=== PATIENT | female | born 1970 | race Caucasian/White ===

== ENCOUNTER 2018-12-25 11:48 | Emergency (ER) | payer OTHER ==
[~2018-12-25] VITALS: Ht 152.4 cm; Wt 53.1 kg
[2018-12-25 12:14] VITALS: BP 99/54
--- NOTE | 2018-12-25 12:24 | NUR ---
PATIENT AMBULATED TO BED 10.
--- NOTE | 2018-12-25 12:27 | NUR ---
48/F BIB FAMILY C/O LUMP OF RIGHT NECK & PAIN RADIATING TO RIGHT EAR X 4 MONTHS. DENIES TRAUMA/INJURY. MED HX: ANEMIA, TUBAL LIGATION. PATIENT STATES PAIN OF 7/10 AT THIS TIME;PATIENT POSITIONED FOR COMFORT; HOB ELEVATED; BEDRAILS UP X1; BED DOWN. ER MD MADE AWARE OF PT STATUS.
[2018-12-25] MEDS ORDERED: NACL 0.9% 1,000 ML IV ONE (13:05)
[2018-12-25 13:32] LABS: BASOPHILS # (AUTO) 0.1 K/uL (0.00-0.22); BASOPHILS % (AUTO) 0.8 % (0.0-2.0); EOSINOPHILS # (AUTO) 0.2 K/uL (0-0.4); EOSINOPHILS % (AUTO) 2.3 % (0.0-4.0); HEMATOCRIT 31.9 % (36-48); HEMOGLOBIN 10.8 g/dL (12.0-16.0); LYMPHOCYTES # (AUTO) 0.8 K/uL (2.5-16.5); LYMPHOCYTES % (AUTO) 11.3 % (20.5-51.1); MEAN CORPUSCULAR HEMOGLOBIN 31 pg (27-31); MEAN CORPUSCULAR HGB CONC 34 g/dL (33-37); MEAN CORPUSCULAR VOLUME 90.8 fL (80-94); MONOCYTES # (AUTO) 0.5 K/uL (0.8-1.0); NEUTROPHILS # (AUTO) 5.9 K/uL (1.8-7.7); NEUTROPHILS % (AUTO) 78.6 % (42.2-75.2); PLATELET COUNT (AUTO) 202 K/uL (140-450); RED BLOOD CELL COUNT(AUTO) 3.51 MIL/uL (4.20-5.40); RED CELL DISTRIBUTION WIDTH 14.4 % (11.6-13.7); WHITE BLOOD COUNT (AUTO) 7.5 K/uL (4.8-10.8)
[2018-12-25 14:20] LABS: ALBUMIN 3.3 g/dL (3.4-5.0); ANION GAP 7.2 (8-16); CARBON DIOXIDE 29.2 mmol/L (21-32); CREATININE 0.6 mg/dL (0.6-1.3); POTASSIUM 4.4 mmol/L (3.5-5.1); TOTAL BILIRUBIN 0.2 mg/dL (0.0-1.0)
[2018-12-25] MEDS ORDERED: AMOXICILLIN 500 MG CAP PO ONE (16:50)
[2018-12-25 17:04] VITALS: BP 107/65
== END 2018-12-25 17:04 | disposition home or self-care (01) ==
LOC: MED 11:48
DX: J02.9 Acute pharyngitis, unspecified (principal); R22.9 Localized swelling, mass and lump, unspecified; D64.9 Anemia, unspecified; Z85.43 Personal history of malignant neoplasm of ovary
CPT/HCPCS: 36415; 70491; 80053; 84702; 85025; 85651; 86140; 99284; J7030; Q9967

== ENCOUNTER 2019-04-05 11:36 | Emergency (ER) | payer OTHER ==
[~2019-04-05] VITALS: Ht 152.4 cm; Wt 49.0 kg
[2019-04-05 11:42] VITALS: BP 95/62
--- NOTE | 2019-04-05 11:49 | NUR ---
AMB TO BED 02, URINE CUP PROVIDED
--- NOTE | 2019-04-05 11:50 | NUR ---
Patient ambulated to bed 2. RN evaluating patient at bedside.
--- NOTE | 2019-04-05 11:52 | NUR ---
Dr. Mondragon is evaluating the patient at bedside.
--- NOTE | 2019-04-05 11:57 | NUR ---
PATIENT PRESENTS TO ED WITH C/O EPISTAXIS SINCE LAST NIGHT. DENIES ANY PICKING/TRAUMA TO NOSE. PER PT, BLEEDING SPONTANEOUSLY STOPPED. PT STATES ACCOMPANYING PRESSURE-LIKE HEADACHE. DENIES N/V/D; SKIN IS PINK/WARM/DRY; AAOX4 WITH EVEN AND STEADY GAIT; LUNGS CLEAR BL; HR EVEN AND REGULAR; PT DENIES ANY FEVER, CP, SOB, OR COUGH AT THIS TIME; VSS; PATIENT POSITIONED FOR COMFORT; HOB ELEVATED; BEDRAILS UP X2; BED DOWN. ER MD MADE AWARE OF PT STATUS. PMH: OROPHARYNGEAL CA MEDS: NORCO PRN NKA
[2019-04-05 12:21] LABS: BASOPHILS % (AUTO) 0.2 % (0.0-2.0); EOSINOPHILS # (AUTO) 0.1 K/uL (0-0.4); EOSINOPHILS % (AUTO) 1.6 % (0.0-4.0); HEMATOCRIT 34.2 % (36-48); HEMOGLOBIN 11.3 g/dL (12.0-16.0); LYMPHOCYTES # (AUTO) 0.9 K/uL (2.5-16.5); LYMPHOCYTES % (AUTO) 15.4 % (20.5-51.1); MEAN CORPUSCULAR HEMOGLOBIN 29 pg (27-31); MEAN CORPUSCULAR HGB CONC 33 g/dL (33-37); MEAN CORPUSCULAR VOLUME 87.4 fL (80-94); MONOCYTES # (AUTO) 0.4 K/uL (0.8-1.0); MONOCYTES % (AUTO) 6.6 % (1.7-9.3); NEUTROPHILS # (AUTO) 4.6 K/uL (1.8-7.7); NEUTROPHILS % (AUTO) 76.2 % (42.2-75.2); PLATELET COUNT (AUTO) 288 K/uL (140-450); RED BLOOD CELL COUNT(AUTO) 3.92 MIL/uL (4.20-5.40); RED CELL DISTRIBUTION WIDTH 13.4 % (11.6-13.7)
[2019-04-05 12:34] LABS: PROTHROMBIN TIME 9.6 secs (10.8-13.4)
[2019-04-05] MEDS ORDERED: NACL 0.9% 1,000 ML IV ONE (12:35)
[2019-04-05 12:37] LABS: CARBON DIOXIDE 30.3 mmol/L (21-32); CREATININE 0.8 mg/dL (0.6-1.3); POTASSIUM 4.3 mmol/L (3.5-5.1)
[2019-04-05 12:48] LABS: ALBUMIN 3.3 g/dL (3.4-5.0); TOTAL BILIRUBIN 0.3 mg/dL (0.0-1.0)
[2019-04-05 15:35] VITALS: BP 95/62
--- NOTE | 2019-04-05 15:36 | NUR ---
Patient discharged with v/s stable. Written and verbal after care instructions given and explained. Patient verbalized understanding. Ambulatory with steady gait. All questions addressed prior to discharge. Advised to follow up with PMD.
--- NOTE | 2019-04-07 08:52 | NUR ---
Late entry. COnfirmed with RN that 0.9 NS IV completed at 1425
== END 2019-04-05 15:36 | disposition home or self-care (01) ==
LOC: MED 11:36
DX: R04.0 Epistaxis (principal); R51 Headache; R20.0 Anesthesia of skin; Z85.9 Personal history of malignant neoplasm, unspecified
CPT/HCPCS: 36415; 70486; 80053; 85025; 85610; 85730; 99284; J7030

== ENCOUNTER 2019-07-04 20:12 | Emergency (ER) | payer OTHER ==
[~2019-07-04] VITALS: Ht 152.4 cm; Wt 48.5 kg
[2019-07-04 20:16] VITALS: BP 123/74
[2019-07-04] MEDS ORDERED: NACL 0.9% 1,000 ML IV ONE (21:48)
[2019-07-04] MEDS ORDERED: ONDANSETRON 4 MG/2 ML VIAL IVP ONE (21:50)
[2019-07-04 22:24] LABS: BASOPHILS % (AUTO) 0.5 % (0.0-2.0); EOSINOPHILS # (AUTO) 0.1 K/uL (0-0.4); EOSINOPHILS % (AUTO) 2.6 % (0.0-4.0); HEMATOCRIT 24.9 % (36-48); HEMOGLOBIN 8.6 g/dL (12.0-16.0); LYMPHOCYTES # (AUTO) 0.5 K/uL (2.5-16.5); LYMPHOCYTES % (AUTO) 22.5 % (20.5-51.1); MEAN CORPUSCULAR HEMOGLOBIN 32 pg (27-31); MEAN CORPUSCULAR HGB CONC 34 g/dL (33-37); MEAN CORPUSCULAR VOLUME 91.6 fL (80-94); MONOCYTES # (AUTO) 0.3 K/uL (0.8-1.0); MONOCYTES % (AUTO) 11.6 % (1.7-9.3); NEUTROPHILS # (AUTO) 1.4 K/uL (1.8-7.7); NEUTROPHILS % (AUTO) 62.8 % (42.2-75.2); PLATELET COUNT (AUTO) 244 K/uL (140-450); RED BLOOD CELL COUNT(AUTO) 2.72 MIL/uL (4.20-5.40); RED CELL DISTRIBUTION WIDTH 21.8 % (11.6-13.7); WHITE BLOOD COUNT (AUTO) 2.2 K/uL (4.8-10.8)
[2019-07-04 22:35] LABS: ANION GAP 11.9 (8-16); CREATININE 0.9 mg/dL (0.6-1.3); POTASSIUM 3.9 mmol/L (3.5-5.1)
[2019-07-04 22:55] LABS: ALBUMIN 3.4 g/dL (3.4-5.0); TOTAL BILIRUBIN 0.3 mg/dL (0.0-1.0)
[2019-07-05] MEDS ORDERED: METOCLOPRAMIDE 10 MG/2 ML INJ VIAL IVP ONE (00:05)
[2019-07-05] MEDS ORDERED: diphenhydrAMINE 50 MG/ML VIAL IVP ONE (00:05)
[2019-07-05 00:07] LABS: APPEARANCE,URINE CLEAR (CLEAR); BILIRUBIN,URINE NEGATIVE (NEGATIVE); BLOOD, URINE NEGATIVE (NEGATIVE); COLOR,URINE YELLOW (YELLOW); LEUKOCYTE ESTERASE ,URINE 1+ (NEGATIVE); NITRITE, URINE NEGATIVE (NEGATIVE); PH,URINE 6.5 (5.0-9.0); UGLUCOSE NEGATIVE (NEGATIVE)
[2019-07-05 00:20] LABS: RBC,URINE 0-5 /HPF (0-5); WBC,URINE 16-25 (MOD) /HPF (0-5)
[2019-07-05 02:45] VITALS: BP 112/84
== END 2019-07-05 02:45 | disposition home or self-care (01) ==
LOC: MED 20:12
DX: R11.2 Nausea with vomiting, unspecified (principal); Z98.890 Other specified postprocedural states; Z85.22 Personal history of malignant neoplasm of nasal cavities, middle ear, and accessory sinuses; Z85.89 Personal history of malignant neoplasm of other organs and systems
CPT/HCPCS: 36415; 70450; 71045; 80053; 81001; 83605; 83690; 85025; 87040; 96374; 96375; 99285; J1200; J2405; J2765; J7030; Q0092; 96361

== ENCOUNTER 2019-09-12 06:33 | Emergency (ER) | payer OTHER ==
[~2019-09-12] VITALS: Ht 152.4 cm; Wt 38.6 kg
[2019-09-12 06:37] VITALS: BP 118/76
--- NOTE | 2019-09-12 06:37 | NUR ---
PT AMBULATED TO BED #1 W/ STEADY GAIT.
--- NOTE | 2019-09-12 07:00 | NUR ---
RECEIVED A 48/F FROM TRIAGE WITH A C/O RIGHT EAR PAIN. PT DENIES INJURY/TRAUMA. NO OBVIOUS DEFORMITY OR INJURY NOTED. PT STATES THAT SHE IS GETTING RADIATION FOR TREATMENT BUT IS UNABLE TO ANSWER WHAT CANCER SHE HAS DUE TO PAIN. IN BED FOR MSE.
--- NOTE | 2019-09-12 07:13 | NUR ---
DR. SHAH EVALUATING PT AT BEDSIDE
[2019-09-12] MEDS ORDERED: KETOROLAC 30 MG/ML VIAL IM ONE (07:20)
[2019-09-12] MEDS ORDERED: MORPHINE SULFATE 4 MG/ML SYR IM ONE (07:20)
[2019-09-12] MEDS ORDERED: ONDANSETRON 4 MG ODT PO ONE (07:20)
--- NOTE | 2019-09-12 07:20 | NUR ---
Pt is planning to take a Lyft back to home at discharge. Dr. Saenz is aware.
--- NOTE | 2019-09-12 07:37 | NUR ---
Pt sleeping in bed, respirations even and unlabored. On bedside monitor.
--- NOTE | 2019-09-12 07:47 | NUR ---
Dr. Saenz re-evaluating pt at bedside. Pt states pain at 0/10.
[2019-09-12 08:09] VITALS: BP 118/76
== END 2019-09-12 08:10 | disposition home or self-care (01) ==
LOC: MED 06:33
DX: G89.29 Other chronic pain (principal); H90.2 Conductive hearing loss, unspecified; Z85.21 Personal history of malignant neoplasm of larynx
CPT/HCPCS: 96372; 99284; J1885; J2270; Q0162

== ENCOUNTER 2019-12-25 09:55 | Emergency (ER) | payer OTHER ==
[~2019-12-25] VITALS: Ht 152.4 cm; Wt 44.9 kg
[2019-12-25 10:05] VITALS: BP 110/70
--- NOTE | 2019-12-25 10:11 | NUR ---
AMB TO BED 09
[2019-12-25 10:42] VITALS: BP 110/70
--- NOTE | 2019-12-25 10:42 | NUR ---
PT IS 49 Y/O FEMALE PRESENTING WITH C/O COLD LIKE SYMPTOMS FOR 2.5 DAYS. PT REPORTS HAVING LOW GRADE FEVER 2.5 DAYS AGO, BUT IS AFEBRILE NOW. A&OX4. PT DENIES N/V/D. LUNG SOUNDS ARE CLEAR. RESPIRATIONS AND EVEN AND UNLABORED. PT HAS NOT BEEN MEDICATING AT HOME BECAUSE SHE STATES SHE IS UNSURE OF WHAT TO TAKE. PATIENT HAS NO KNOWN ALLERGIES. HX OF NECK, NASAL, AND BRAIN CA.
--- NOTE | 2019-12-25 10:43 | NUR ---
Dr Shrestha at bedside examining pt
[2019-12-25] MEDS ORDERED: IBUPROFEN 600 MG TAB PO ONE (10:50)
[2019-12-25] MEDS ORDERED: ACETAMINOPHEN EXTRA STRENGTH 500 MG TAB PO ONE (10:50)
--- NOTE | 2019-12-25 11:15 | NUR ---
MEDICATED PT PER ORDER. PT TOLERATED WELL. SWABBED PT FOR INF A AND B AND WALKED SWAB TO LAB.
== END 2019-12-25 11:15 | disposition home or self-care (01) ==
LOC: MED 09:55
DX: B34.9 Viral infection, unspecified (principal); Z85.89 Personal history of malignant neoplasm of other organs and systems
CPT/HCPCS: 87804; 99283

== ENCOUNTER 2020-03-22 08:12 | Emergency (ER) | payer OTHER ==
[~2020-03-22] VITALS: Ht 154.9 cm; Wt 44.0 kg
[2020-03-22 08:20] VITALS: BP 125/77
--- NOTE | 2020-03-22 08:22 | NUR ---
TO LOBBY A/W BED AMBULATORY
--- NOTE | 2020-03-22 08:35 | NUR ---
SEEN AND EXAMINED BY SUDHA WITH ORDER, CARRIED OUT.
[2020-03-22] MEDS ORDERED: MORPHINE SULFATE 4 MG/ML SYR IM ONE (08:40)
--- NOTE | 2020-03-22 08:45 | NUR ---
MEDICATED PER ERMDS ORDER, TOLERATED WELL.
[2020-03-22 09:59] VITALS: BP 125/77
--- NOTE | 2020-03-22 09:59 | NUR ---
Patient discharged with v/s stable. Written and verbal after care instructions given and explained. Patient alert, oriented and verbalized understanding of instructions. Ambulatory with steady gait. All questions addressed prior to discharge. ID band removed. Patient advised to follow up with PMD. Rx of Amoxicillin 500mg and Naprosyn 500mg given. Patient educated on indication of medication including possible reaction and side effects. Opportunity to ask questions provided and answered.
== END 2020-03-22 09:59 | disposition home or self-care (01) ==
LOC: MED 08:12
DX: H92.01 Otalgia, right ear (principal); Z85.818 Personal history of malignant neoplasm of other sites of lip, oral cavity, and pharynx
CPT/HCPCS: 96372; 99283; J2270

== ENCOUNTER 2022-10-10 06:45 | Emergency (ER) | payer MEDICAID, OTHER ==
[~2022-10-10] VITALS: Ht 154.9 cm; Wt 53.5 kg
[2022-10-10 07:11] VITALS: BP 108/74; PULSE 45; RESP 14; TEMP 96.8; O2SAT 99
--- NOTE | 2022-10-10 07:18 | NUR ---
PT AMBULATED TO BED 12
[2022-10-10 07:40] VITALS: O2SAT 99
--- NOTE | 2022-10-10 07:40 | NUR ---
51YO FEMALE PT C/O L NECK PAIN AND TENDERNESS X3DAYS. 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 DENIES INJURY, N/V/D, CHEST PAIN,SOB OR TAKING MEDICATION. PT AAOX4, HOB POSITIONED PER COMFORT. CALL LIGHT WITHIN REACH. HX: NON HODGKINS LYMPHOMA, STROKE, [place] NKA
--- NOTE | 2022-10-10 07:42 | NUR ---
lab at bedside
[2022-10-10 08:08] LABS: BASOPHILS % (AUTO) 0.4 % (0.0-2.0); EOSINOPHILS # (AUTO) 0.1 K/uL (0-0.4); EOSINOPHILS % (AUTO) 3.5 % (0.0-4.0); HEMATOCRIT 31.6 % (36-48); HEMOGLOBIN 10.3 g/dL (12.0-16.0); LYMPHOCYTES # (AUTO) 0.5 K/uL (2.5-16.5); MEAN CORPUSCULAR HEMOGLOBIN 26 pg (27-31); MEAN CORPUSCULAR HGB CONC 33 g/dL (33-37); MEAN CORPUSCULAR VOLUME 80.8 fL (80-94); MONOCYTES # (AUTO) 0.3 K/uL (0.8-1.0); MONOCYTES % (AUTO) 8.4 % (1.7-9.3); NEUTROPHILS # (AUTO) 2.9 K/uL (1.8-7.7); NEUTROPHILS % (AUTO) 73.7 % (42.2-75.2); PLATELET COUNT (AUTO) 172 K/uL (140-450); RED BLOOD CELL COUNT(AUTO) 3.91 MIL/uL (4.20-5.40); RED CELL DISTRIBUTION WIDTH 16.7 % (11.6-13.7); WHITE BLOOD COUNT (AUTO) 3.9 K/uL (4.8-10.8)
--- NOTE | 2022-10-10 08:44 | NUR ---
pt at rest w/ eyes closed. respirations even and unlabored. bed at lowest position, bed rails upx2.
--- NOTE | 2022-10-10 09:25 | NUR ---
lab contacted for pending results. eta 15min
[2022-10-10 09:35] LABS: ALBUMIN 3.6 g/dL (3.4-5.0); CARBON DIOXIDE 21.9 mmol/L (21-32); POTASSIUM 3.9 mmol/L (3.5-5.1); TOTAL BILIRUBIN 0.3 mg/dL (0.0-1.0)
[2022-10-10] MEDS ORDERED: NAPR-1704 PO (09:49)
[2022-10-10 09:55] VITALS: BP 108/74; PULSE 45; RESP 14; TEMP 96.8; O2SAT 99
--- NOTE | 2022-10-10 09:55 | NUR ---
Patient discharged with v/s stable. Written and verbal after care instructions given and explained. Patient alert, oriented and verbalized understanding of instructions. Ambulatory with steady gait. All questions addressed prior to discharge. ID band removed. Patient advised to follow up with PMD. Rx of NAPROXEN (SENT) given. Patient educated on indication of medication including possible reaction and side effects. Opportunity to ask questions provided and answered.
== END 2022-10-10 09:55 | disposition home or self-care (01) ==
LOC: MED 06:45
DX: M54.2 Cervicalgia (principal); D72.819 Decreased white blood cell count, unspecified; C81.91 Hodgkin lymphoma, unspecified, lymph nodes of head, face, and neck; D64.9 Anemia, unspecified; Z79.899 Other long term (current) drug therapy
CPT/HCPCS: 36415; 80053; 85025; 99283

== ENCOUNTER 2023-11-21 08:18 | Emergency (ER) | payer MEDICAID ==
[~2023-11-21] VITALS: Ht 154.9 cm; Wt 49.9 kg
[~2023-11-21 08:18] MED LIST: NAPR-1704 PO
[2023-11-21 08:22] VITALS: BP 102/49; PULSE 50; RESP 18; TEMP 97.9; O2SAT 100
[2023-11-21 08:40] VITALS: BP 101/63; PULSE 49; RESP 18; TEMP 97.9; O2SAT 100
[2023-11-21] MEDS ORDERED: ASPIRIN 81 MG TAB.CHEW PO ONE (08:40)
== END 2023-11-21 08:55 | disposition left against medical advice (07) ==
LOC: MED 08:18
DX: R07.9 Chest pain, unspecified (principal); R11.0 Nausea; R53.1 Weakness; R06.02 Shortness of breath; R05.9 Cough, unspecified; Z86.73 Personal history of transient ischemic attack (TIA), and cerebral infarction without residual deficits; Z85.818 Personal history of malignant neoplasm of other sites of lip, oral cavity, and pharynx; Z79.1 Long term (current) use of non-steroidal anti-inflammatories (NSAID); Z98.890 Other specified postprocedural states
CPT/HCPCS: 93005; 99283